=== PATIENT | male | born 1975 | race Two or more races ===

== ENCOUNTER 2021-03-27 18:38 | Inpatient (IN) | payer OTHER ==
[~2021-03-27] VITALS: Ht 162.6 cm; Wt 78.4 kg
[2021-03-27 20:14] LABS: HEMATOCRIT 49.9 % (42.0-52.0); HEMOGLOBIN 16.3 g/dl (13.5-17.5); MEAN CORPUSCULAR HEMOGLOBIN 27.2 pg (27.0-33.0); MEAN CORPUSCULAR HGB CONC 32.7 g/dl (32.0-36.5); MEAN CORPUSCULAR VOLUME 83.2 fl (80.0-96.0); PLATELET COUNT, AUTOMATED 227 10^3/uL (150-450); WHITE BLOOD COUNT 11.7 10^3/uL (4.0-10.0)
[2021-03-27 20:43] LABS: ALBUMIN 4.7 GM/DL (3.2-5.2); ALT/SGPT 45 U/L (12-78); BILIRUBIN,DIRECT 0.3 MG/DL (0.0-0.2); BLOOD UREA NITROGEN 15 MG/DL (7-18); CALCIUM LEVEL 9.7 MG/DL (8.5-10.1); CARBON DIOXIDE LEVEL 28 MEQ/L (21-32); CHLORIDE LEVEL 106 MEQ/L (98-107); CREATININE FOR GFR 1.13 MG/DL (0.70-1.30); GLOMERULAR FILTRATION RATE > 60.0 (>60); GLUCOSE, FASTING 92 MG/DL (70-100); POTASSIUM SERUM 3.8 MEQ/L (3.5-5.1); SALICYLATE LEVEL < 1.7 MG/DL (5.0-30.0); SODIUM LEVEL 140 MEQ/L (136-145); THYROID STIMULATING HORMONE 0.319 uIU/ML (0.358-3.740); TOTAL PROTEIN 8.2 GM/DL (6.4-8.2)
[2021-03-27 20:44] LABS: ACETAMINOPHEN LEVEL < 2.0 UG/ML (10.0-30.0); ETHYL ALCOHOL (ETHANOL) < 0.003 % (0.000-0.010)
[2021-03-27 23:43] LABS: AMPHETAMINES LEVEL URINE NEGATIVE (NEGATIVE); BARBITURATES URINE NEGATIVE (NEGATIVE); BENZODIAZEPINES URINE NEGATIVE (NEGATIVE); CANNABINOIDS URINE NEGATIVE (NEGATIVE); COCAINE METABOLITE URINE NEGATIVE (NEGATIVE); METHADONE URINE NEGATIVE (NEGATIVE); OPIATES URINE NEGATIVE (NEGATIVE); PHENCYCLIDINE URINE NEGATIVE (NEGATIVE)
[2021-03-28] MEDS ORDERED: OLANZapine ORAL DISINTEGRATING TAB 5MG PO ONE
[2021-03-28 01:12] LABS: RSV AMPLIFICATION NEGATIVE (NEGATIVE)
[2021-03-28] MEDS ORDERED: traZODone 50 MG TAB PO PRN (02:05)
[2021-03-28] MEDS ORDERED: NICOTINE 21MG/24HR 1 EA TRANSDERMAL TD PRN (02:05)
[2021-03-28] MEDS ORDERED: OLANZapine ORAL DISINTEGRATING TAB 5MG PO PRN (02:05)
[2021-03-28] MEDS ORDERED: LORazepam 2 MG/ML VIAL IM STA (13:12)
[2021-03-28] MEDS ORDERED: diphenhydrAMINE 50MG/ML VIAL (J1200) IM STA (13:12)
[2021-03-28] MEDS ORDERED: HALOPERIDOL 5MG/ML VIAL (J1630 PER 1) IM ONE (13:20)
[2021-03-28] MEDS ORDERED: HALOPERIDOL 5MG/ML VIAL (J1630 PER 1) As Ordered ONE (13:22)
[2021-03-28 13:37] VITALS: BP 174/108
[2021-03-28 13:39] VITALS: BP 174/108
[2021-03-28 13:45] VITALS: BP 142/89
[2021-03-28] MEDS ORDERED: BENZTROPINE 0.5 MG TAB PO PRN (16:30)
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
[2021-03-28] MEDS: OLANZapine 5 MG TAB PO SCH (21:00)
[2021-03-29 06:35] VITALS: BP 147/87
[2021-03-29] MEDS: OLANZapine 5 MG TAB PO SCH ×2 (09:08→21:25)
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
[2021-03-29] MEDS: NEOSPORIN TOP OINT 15GM TOP SCH (16:37)
[2021-03-29] MEDS: LABETALOL 100MG TAB PO SCH ×2 (18:26→21:00)
[2021-03-30 06:00] VITALS: BP 126/80
[2021-03-30] MEDS: OLANZapine 5 MG TAB PO SCH ×2 (08:30→20:13)
[2021-03-30] MEDS: NEOSPORIN TOP OINT 15GM TOP SCH ×2 (08:30→20:13)
[2021-03-30] MEDS: LABETALOL 100MG TAB PO SCH ×2 (08:32→20:15)
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
[2021-03-30 16:06] VITALS: BP 135/90
[2021-03-31 06:13] VITALS: BP 142/94
[2021-03-31] MEDS: LABETALOL 100MG TAB PO SCH ×2 (08:29→20:20)
[2021-03-31] MEDS: OLANZapine 5 MG TAB PO SCH ×2 (08:29→20:20)
[2021-03-31] MEDS: NEOSPORIN TOP OINT 15GM TOP SCH ×2 (08:29→20:19)
[2021-03-31 16:29] VITALS: BP 154/98
[2021-03-31] MEDS: traZODone 100 MG TAB PO PRN (21:40)
[2021-04-01 06:16] VITALS: BP 137/65
[2021-04-01] MEDS: NEOSPORIN TOP OINT 15GM TOP SCH ×2 (08:26→20:28)
[2021-04-01] MEDS: OLANZapine 5 MG TAB PO SCH ×2 (08:26→20:28)
[2021-04-01] MEDS: LABETALOL 100MG TAB PO SCH ×2 (08:27→20:30)
[2021-04-01] MEDS: traZODone 100 MG TAB PO PRN ×2 (20:27→21:45)
[2021-04-02 06:56] VITALS: BP 139/89
[2021-04-02] MEDS: NEOSPORIN TOP OINT 15GM TOP SCH ×2 (09:00→20:29)
--- NOTE | 2021-04-02 09:11 | MHIPN ---
[facility] PROGRESS NOTE DATE: 03/31/2021 This is a video assessment, he is in the inpatient psychiatry unit, he is seen in the presence of staff, I am at home. VITAL SIGNS: Blood pressure 140/100, temperature 96.7, pulse 82. CHIEF COMPLAINT: Says feels better. SUBJECTIVE: Seen for followup, indicates feels better, and that he feels more rested, as had better sleep, indicated has had time to rest, particularly as he is away from his stressors. Says is in touch with family, that has been going well. MENTAL STATUS EXAMINATION: He is neat, he is cooperative, no agitation, no psychomotor retardation, speech somewhat overly productive, but no formal thought disorder as such, at present. Affect fairly broad, possibly somewhat expansive. Denies any thoughts of harming himself or anyone else, no overt delusions or ideations, does not appear to be internally preoccupied. Judgment and insight remain compromised, though possibly somewhat improved. ASSESSMENT: Bipolar disorder, current episode manic with psychotic features. PLAN: Continue current care, including the olanzapine at 5 mg twice a day, may need to consider increasing it to help stabilize his moods. Encourage participation in activities in the unit. Obtain collateral information. Further recommendations to be made depending on the clinical picture.
--- NOTE | 2021-04-02 09:53 | MHIPN ---
[facility] PROGRESS NOTE DATE: 04/01/2021 VITAL SIGNS: Blood pressure 141/98, pulse 85, temperature 96.6. This is a video assessment, he is seen in the presence of staff, he is in the inpatient psychiatry unit, I am at home. CHIEF COMPLAINT: Says feels a bit tired. SUBJECTIVE: Seen for followup. Indicates has been feeling a bit tired, says had trouble with sleep, in that he slept for a few hours at a time, then would wake up, and then go back to sleep again, this happened on several occasions, and this is after the trazodone had gone up to 100 mg last night. 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 He feels moods are improved, he is less anxious, says has been in touch with his family, and that has gone well. Appetite is good. MENTAL STATUS EXAMINATION: He is neat, cooperative, no agitation, no psychomotor retardation. Speech somewhat less over-productive, and normal in amount and rate currently. No formal thought disorder. Affect fairly broad, not as expansive as yesterday. Denies any thoughts of harming himself or anyone else, currently no delusional ideations elicited, though they may be "just under the surface." Cognition is grossly intact, judgment and insight, though somewhat improved, remain compromised. ASSESSMENT: Bipolar disorder, current episode manic with psychotic features. PLAN: Continue current care, including the trazodone at the increased dose of 100 mg at night, this was increased yesterday. I do not think there is much point in changing the dose at present, as it may take a little while for his sleep to settle down. The possibility of feeling drowsy when he wakes up is also discussed at length. Olanzapine is to continue at 5 mg twice a day, may need to consider increasing it to help stabilize moods further, depending on the clinical situation. He is to be encouraged to participate in activities in the unit. He will be seen by the assigned clinicians tomorrow, and further recommendations will be made.
[2021-04-02] MEDS: OLANZapine 5 MG TAB PO SCH (09:59)
[2021-04-02] MEDS: LABETALOL 100MG TAB PO SCH ×2 (10:00→20:28)
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
[2021-04-02 17:23] VITALS: BP 128/78
[2021-04-02] MEDS: OLANZapine 10 MG TAB PO SCH (20:28)
[2021-04-02] MEDS: traZODone 100 MG TAB PO PRN (21:07)
[2021-04-03] MEDS: LABETALOL 100MG TAB PO SCH ×2 (06:27→20:31)
[2021-04-03 07:24] VITALS: BP 140/100
[2021-04-03 07:55] LABS: CHOLESTEROL RISK RATIO 3.166 (<5)
[2021-04-03] MEDS: NEOSPORIN TOP OINT 15GM TOP SCH ×2 (09:00→20:33)
[2021-04-03] MEDS: OLANZapine 10 MG TAB PO SCH ×2 (10:06→20:31)
[2021-04-03] MEDS: DIVALPROEX 250 MG TAB PO SCH ×2 (10:06→20:32)
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
[2021-04-03 18:42] VITALS: BP 131/91
[2021-04-03] MEDS ORDERED: QUEtiapine FUMARATE 50MG TAB PO SCH (21:00)
[2021-04-04 06:38] VITALS: BP 123/84
[2021-04-04] MEDS: OLANZapine 10 MG TAB PO SCH ×3 (08:30→21:51)
[2021-04-04] MEDS: LABETALOL 100MG TAB PO SCH ×3 (08:34→21:51)
[2021-04-04] MEDS: DIVALPROEX 250 MG TAB PO SCH ×3 (08:35→21:50)
[2021-04-04] MEDS: NEOSPORIN TOP OINT 15GM TOP SCH ×3 (09:00→21:52)
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
[2021-04-04] MEDS ORDERED: QUEtiapine FUMARATE 100 MG TAB PO PRN (14:05)
[2021-04-04] MEDS: ACETAMINOPHEN TAB 650MG DOSE (2X325MG) PO PRN (15:13)
[2021-04-04] MEDS ORDERED: diphenhydrAMINE 50MG CAP PO STA (15:21)
[2021-04-04] MEDS ORDERED: LORazepam 2 MG TAB PO STA (15:21)
[2021-04-04 18:35] VITALS: BP 148/104
[2021-04-05] MEDS: OLANZapine 10 MG TAB PO SCH ×2 (08:30→21:07)
[2021-04-05] MEDS: DIVALPROEX 250 MG TAB PO SCH ×2 (08:30→21:07)
[2021-04-05] MEDS: LABETALOL 100MG TAB PO SCH ×2 (08:32→21:06)
[2021-04-05] MEDS: NEOSPORIN TOP OINT 15GM TOP SCH ×2 (08:34→21:07)
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
[2021-04-05] MEDS ORDERED: DEPA250T32 PO (10:17)
[2021-04-05] MEDS ORDERED: QUET100T2 PO (10:17)
[2021-04-05] MEDS ORDERED: LABE100T4 PO (10:17)
[2021-04-05] MEDS ORDERED: OLAN10TA2 PO (10:17)
[2021-04-05] MEDS ORDERED: BENZ0.5T23 PO (10:17)
[2021-04-05] MEDS: ACETAMINOPHEN TAB 650MG DOSE (2X325MG) PO PRN (15:08)
[2021-04-05 17:33] VITALS: BP 152/98
[2021-04-06 06:23] VITALS: BP 135/66
[2021-04-06 08:15] VITALS: BP 135/66
[2021-04-06] MEDS: LABETALOL 100MG TAB PO SCH (08:15)
[2021-04-06] MEDS: DIVALPROEX 250 MG TAB PO SCH (08:15)
[2021-04-06] MEDS: OLANZapine 10 MG TAB PO SCH (08:15)
[2021-04-06] MEDS: NEOSPORIN TOP OINT 15GM TOP SCH (08:16)
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
== END 2021-04-06 12:42 | disposition home or self-care (01) | DRG 885 ==
LOC: M ED 18:38 → M ED INP 03-28 02:04 → M PSY 03-28 04:25
PROVIDERS: ADMIT Psychiatry & Neurology Psychiatry; ATTEND Psychiatry & Neurology Psychiatry
DX: F31.2 Bipolar disorder, current episode manic severe with psychotic features (principal); Z20.822 Contact with and (suspected) exposure to COVID-19; Z63.0 Problems in relationship with spouse or partner; Z56.0 Unemployment, unspecified